=== PATIENT | male | born 1990 | race Caucasian/White ===

== ENCOUNTER 2020-04-02 18:56 | Emergency (ER) | payer SELFPAY ==
[~2020-04-02] VITALS: Ht 170.2 cm; Wt 93.0 kg
[2020-04-02 19:18] VITALS: BP_SYST 165
[2020-04-02] MEDS ORDERED: ONDANSETRON HCL 4 MG/2 ML VIAL IVP ONE (19:45)
[2020-04-02] MEDS ORDERED: NACL 0.9% 1,000 ML IV ONE (19:45)
[2020-04-02 23:31] VITALS: BP_SYST 165
== END 2020-04-02 23:31 | disposition home or self-care (01) ==
LOC: SED 18:56
DX: T78.1XXA Other adverse food reactions, not elsewhere classified, initial encounter (principal); F12.90 Cannabis use, unspecified, uncomplicated; Z88.8 Allergy status to other drugs, medicaments and biological substances; X58.XXXA Exposure to other specified factors, initial encounter
CPT/HCPCS: 96361; 96374; 99283; J2405; J7030

== ENCOUNTER 2020-04-05 14:41 | Emergency (ER) | payer BC ==
[~2020-04-05] VITALS: Ht 170.2 cm; Wt 91.2 kg
[2020-04-05 14:46] VITALS: BP_SYST 136
[2020-04-05 16:18] VITALS: BP_SYST 136
== END 2020-04-05 16:19 | disposition home or self-care (01) ==
LOC: SED 14:41
DX: R53.1 Weakness (principal); F12.90 Cannabis use, unspecified, uncomplicated
CPT/HCPCS: 99283